=== PATIENT | female | born 1945 | race Caucasian/White ===

== ENCOUNTER 2018-06-13 07:56 | Emergency (ER) | payer OTHER ==
[~2018-06-13] VITALS: Ht 167.6 cm; Wt 90.7 kg
[2018-06-13] MEDS ORDERED: IOHEXOL 350 MG/ML 100ML IJ ONE (08:25)
[2018-06-13] MEDS ORDERED: LORazepam 0.5 MG TAB PO ONE (08:30)
[2018-06-13] MEDS ORDERED: SODIUM CHLORIDE 0.9% 500 ML IV ONE (08:30)
[2018-06-13 08:46] LABS: Basophils # (auto) 0.1 uL; Basophils % (auto) 1.1 % (0.0-2.0); Eosinophils # (auto) 0.1 uL; Eosinophils % (auto) 0.9 % (0.0-7.0); Hematocrit 43.8 % (36.0-46.0); Hemoglobin 14.4 g/dL (12.2-16.2); Lymphocytes # (auto) 1.6 uL; Lymphocytes % (auto) 22.6 % (10.0-50.0); Mean Corpuscular Hemoglobin 27.6 pg (28.0-32.0); Mean Corpuscular Hgb Conc. 32.9 g/dL (32.0-36.0); Mean Corpuscular Volume 84.1 fL (80.0-100.0); Monocytes # (auto) 0.6 uL; Monocytes % (auto) 8.9 % (0.0-12.0); Neutrophils # (auto) 4.8 uL; Neutrophils % (auto) 66.5 % (37.0-80.0); Platelet Count (auto) 327 10^3/uL (140-450); Red Blood Cells 5.21 10^6/uL (4.0-5.20); Red Cell Distribution Width 15.1 % (11.8-14.3); White Blood Cell 7.2 10^3/uL (4.4-10.8)
[2018-06-13 09:02] LABS: Albumin 3.4 g/dL (3.4-5.0); Anion Gap 7 (5-15); Blood Urea Nitrogen 12 mg/dL (7-18); Calcium 8.9 mg/dL (8.5-10.1); Carbon Dioxide 23 mmol/L (21-32); Chloride 108 mmol/L (98-107); Glucose 99 mg/dL (74-106); INR 1.62 (0.9-1.15); Magnesium 2.3 mg/dL (1.6-2.6); Partial Thromboplastin Time 36.3 sec (23.78-33.04); Potassium 4.1 mmol/L (3.5-5.1); Prothrombin Time 16.9 sec (9.27-12.13); Sodium 138 mmol/L (136-145)
[2018-06-13 09:08] LABS: Alanine Aminotransferase 19 U/L (13-56); Alkaline Phosphatase 90 U/L (45-117); Aspartate Aminotransferase 18 U/L (15-37); BUN/Creatinine Ratio 13.8; Bilirubin, Total 0.4 mg/dL (0.2-1.0); GFR African American 83 mL/min; GFR Non-African American 68 mL/min
[2018-06-13 15:33] VITALS: BP 131/70
== END 2018-06-13 15:54 | disposition short-term general hospital (02) ==
LOC: EDBD 07:56 → ER 08:00
DX: R07.89 Other chest pain (principal); Z98.890 Other specified postprocedural states; Z86.711 Personal history of pulmonary embolism
CPT/HCPCS: 36415; 71045; 71275; 80053; 83735; 83880; 84484; 85025; 85379; 85610; 85730; 93005; 94761; 99285; Q9967

== ENCOUNTER 2019-11-09 16:35 | Emergency (ER) | payer OTHER ==
[~2019-11-09] VITALS: Ht 162.6 cm; Wt 72.6 kg
[2019-11-09] MEDS ORDERED: MORPHINE SULFATE 4 MG/ML SYR/VIAL ONE (16:55)
[2019-11-09] MEDS ORDERED: ONDANSETRON HCL 4 MG/2 ML VIAL ONE (16:55)
[2019-11-09] MEDS ORDERED: ONDANSETRON HCL 4 MG/2 ML VIAL IV ONE (17:00)
[2019-11-09] MEDS ORDERED: MORPHINE SULFATE 4 MG/ML SYR/VIAL IV ONE ×2 (17:00→18:15)
[2019-11-09 17:37] VITALS: BP 104/83
== END 2019-11-09 18:49 | disposition home or self-care (01) ==
LOC: EDBD 16:35 → ER 16:35
DX: S42.201A Unspecified fracture of upper end of right humerus, initial encounter for closed fracture (principal); W01.0XXA Fall on same level from slipping, tripping and stumbling without subsequent striking against object, initial encounter; Y93.89 Activity, other specified; Y92.89 Other specified places as the place of occurrence of the external cause; Y99.8 Other external cause status
CPT/HCPCS: 29105; 73030; 96374; 96375; 96376; 99284; J2270; J2405